=== PATIENT | female | born 1955 | race Caucasian/White ===

== ENCOUNTER 2017-06-28 14:59 | Outpatient (CLI) | payer BC ==
--- NOTE | 2017-06-28 15:56 | XRAY Report ---
TWO-VIEW LEFT HAND: 06/28/2017 CLINICAL INDICATION: Thumb pain, swelling. FINDINGS: Frontal and lateral views of the left hand demonstrate mild osteoarthritis of the interpha langeal joints. There is no evidence of acute fracture or dislocation. No radiopaque foreign body i s appreciated in the soft tissues. IMPRESSION: MILD OSTEOARTHRITIS. JOB #: [id number] EXT JOB #:[id number]
== END 2017-06-28 15:00 | disposition home or self-care (01) ==
LOC: DI 14:59
PROVIDERS: ATTEND Physician Assistant Medical
DX: M19.042 Primary osteoarthritis, left hand (principal)

== ENCOUNTER 2017-07-22 15:40 | Outpatient (CLI) | payer BC ==
--- NOTE | 2017-07-23 09:55 | Ultrasound Report ---
PELVIC ULTRASOUND: 07/22/2017 CLINICAL INDICATION: Androgen excess. TECHNIQUE: Transabdominal pelvic ultrasound performed for global evaluation. Transvaginal pelvic ult rasound performed for detailed evaluation. Real-time scanning performed and static images obtained. FINDINGS: The uterus is anteverted, measuring 9.4 x 5.0 x 4.8 cm. The endometrial echo complex radha ures 4 mm. An anterior subserosal leiomyoma is noted, measuring 2.0 x 1.5 x 1.2 cm. There is a tubu lar fluid collection in the left adnexa, measuring 5.3 x 3.9 x 1.7 cm, likely representing a hydrosal pinx. The left ovary is not confidently identified. No free fluid is present. IMPRESSION: LIKELY LEFT HYDROSALPINX. SMALL SUBSEROSAL LEIOMYOMA. JOB #: [id number] EXT JOB #:[id number]
== END 2017-07-22 15:41 | disposition home or self-care (01) ==
LOC: DI 15:40
PROVIDERS: ATTEND Obstetrics & Gynecology
DX: D25.2 Subserosal leiomyoma of uterus (principal)
CPT/HCPCS: 76830; 76856

== ENCOUNTER 2017-07-22 15:41 | Outpatient (CLI) | payer BC ==
--- NOTE | 2017-07-23 12:27 | Mammography Report ---
DIGITAL SCREENING MAMMOGRAM: 07/22/2017 CLINICAL INDICATION: A 61-year-old patient with family history of breast cancer, history of reductio n for screening. COMPARISON: 06/2016, 06/2015, 06/2014, 06/2013, 06/2012, 06/2011, 06/2010. TECHNIQUE: Routine CC and MLO projections were obtained of the breasts. FINDINGS: The breasts demonstrate fatty replacement bilaterally. Coarse and punctate, typically stephanie ign calcifications are present. Post-reduction changes are stable. No suspicious masses, clustered microcalcifications, or regions of architectural distortion are identified. IMPRESSION: BENIGN FINDINGS. RECOMMENDATION: Routine annual screening unless otherwise clinically indicated. BI-RADS category 2, benign findings. STANDARD QUALIFYING STATEMENTS 1. This examination was reviewed with the aid of Computer-Aided Detection (CAD). 2. A negative or benign imaging report should not delay biopsy if clinically suspicious findings are present. Consider surgical consultation if warranted. More than 5% of cancers are not identified by i maging. 3. Dense breasts may obscure an underlying neoplasm. JOB #: [id number] EXT JOB #:[id number]
== END 2017-07-22 15:42 | disposition home or self-care (01) ==
LOC: DI 15:41
PROVIDERS: ATTEND Obstetrics & Gynecology
DX: Z12.39 Encounter for other screening for malignant neoplasm of breast (principal); Z80.3 Family history of malignant neoplasm of breast
CPT/HCPCS: 77067

== ENCOUNTER 2017-12-10 11:18 | Outpatient (CLI) | payer BC ==
--- NOTE | 2017-12-10 12:57 | Ultrasound Report ---
PELVIC ULTRASOUND: 12/10/2017 CLINICAL INDICATION: Androgen excess. COMPARISON: 07/22/2017. TECHNIQUE: Transabdominal pelvic ultrasound performed for global evaluation. Transvaginal pelvic ultrasound performed for detailed evaluation. Real-time scanning performed and static images obtained. FINDINGS: The uterus is anteverted, measuring 8.8 x 5.4 x 4.2 cm. The endometrium measures 5 mm. Anterior subserosal leiomyoma measures 2.2 x 2.0 x 1.4 cm. The right ovary is unremarkable, measuring 2.5 x 1.8 x 1.8 cm. A tubular serpiginous cystic structure is again seen in the left adnexa, measuring 5.0 x 3.4 x 2.5 cm, likely representing a hydrosalpinx. No free fluid is present. IMPRESSION: STABLE ANTERIOR SUBSEROSAL LEIOMYOMA. LIKELY LEFT HYDROSALPINX. TD: 12/10/2017 12:56
== END 2017-12-10 11:19 | disposition home or self-care (01) ==
LOC: DI 11:18
PROVIDERS: ATTEND Obstetrics & Gynecology
DX: D25.2 Subserosal leiomyoma of uterus (principal)
CPT/HCPCS: 76830; 76856

== ENCOUNTER 2018-07-09 14:16 | Outpatient (CLI) | payer BC ==
--- NOTE | 2018-07-10 12:20 | Ultrasound Report ---
Reason: ADROGEN EXCESS Procedure Date: 07/09/2018 Accession Number: [id number] / [id number] Procedure: US - Pelvic w/Transvaginal CPT Code: FULL RESULT: EXAM: PELVIC ULTRASOUND EXAM DATE: 07/09/2018 03:26 PM. CLINICAL HISTORY: Androgen excess. COMPARISON: Pelvic with transvaginal 07/22/2017 4:03 PM. TECHNIQUE: Realtime transabdominal pelvic scan performed to identify the uterus and adnexa and as an overview of other pelvic structures, followed by transvaginal scan to provide greater detail of the uterus and adnexa, with static image documentation. FINDINGS: Uterus: 9.3 x 5.3 x 4.3 cm, volume 110.2 cc. Anteverted position. Normal overall size and echotexture. Masses: 2 x 1.8 x 1.2 cm anterior subserosal fibroid. Endometrium: 4.1 mm. Normal. Cervix: Unremarkable. Right Ovary: 3.5 x 2.2 x 1.6 cm, volume 6.4 cc. Normal echotexture and blood flow. Left Ovary: Tubular cystic structure in the left adnexal region measuring 5.6 x 5 x 2.9 cm for a volume of 42.2 cc. No definite left ovary is noted. Free Fluid: None. Other: None. IMPRESSION: 1. Normal right ovary and adnexa. 2. A 2 cm anterior uterine subserosal fibroid. 3. No endometrial mass or polyp. 4. Probable left hydrosalpinx. RADIA
== END 2018-07-09 14:17 | disposition home or self-care (01) ==
LOC: DI 14:16
PROVIDERS: ATTEND Obstetrics & Gynecology
DX: D25.2 Subserosal leiomyoma of uterus (principal); E28.1 Androgen excess
CPT/HCPCS: 76830; 76856

== ENCOUNTER 2018-07-11 14:56 | Outpatient (CLI) | payer BC ==
--- NOTE | 2018-07-12 15:10 | DEXA Report ---
Reason: POSTMENOPAUSAL, SCREENING MAMMO Procedure Date: 07/11/2018 Accession Number: [id number] / [id number] Procedure: DEX - Dexa Spine and/or Hip CPT Code: FULL RESULT: EXAM: Dexa Spine and/or Hip DATE: 07/11/2018 3:30 PM CLINICAL HISTORY: POSTMENOPAUSAL, SCREENING MAMMO TECHNIQUE: Dual energy x-ray absorptiometry (DXA) was performed on a [employer]. Regions measured are the AP Spine, femoral neck, and if needed forearm. COMPARISON: None. In accordance with the International Society for Clinical Densitometry (ISCD) guidelines, data from previous exams may be reanalyzed using current recommendations and techniques. This is done to allow a more accurate basis for comparison with the current study. FINDINGS: The data for the lumbar spine is as follows: BMD (g/cm/cm) T-SCORE Z-SCORE REGION L1 1.091 -0.3 0.7 L2 1.211 0.1 1.1 L3 1.376 1.5 2.5 L4 1.389 1.6 2.6 TOTAL 1.278 0.8 1.8 NOTE: All evaluable vertebrae are used for classification The data for the hip is as follows: BMD (g/cm/cm) T-SCORE Z-SCORE REGION Neck 1.110 0.5 1.6 TOTAL 1.122 0.9 1.7 IMPRESSION: THE WHO CLASSIFICATION BASED ON THE INTERNATIONAL REFERENCE STANDARD IS NORMAL. THE FRACTURE RISK IS NOT INCREASED. RECOMMENDATION: Patients with diagnosis of osteoporosis or osteopenia should have regular bone mineral density assessment. For those eligible for Medicare, routine testing is allowed once every 2 years. Testing frequency can be increased for patients who have rapidly progressing disease or for those who are receiving medical therapy to restore bone mass. COMMENT: World Health Organization (WHO) definitions for osteoporosis and osteopenia: NORMAL BMD: T-score at -1.0 or higher, fracture risk is low OSTEOPENIA BMD: T-score between -1.0 and -2.5, fracture risk is increased. OSTEOPOROSIS BMD: T-score at -2.5 or lower, fracture risk is high. National Osteoporosis Foundation recommends: 1. Obtain adequate dietary calcium (at least 1200 mg per day) and vitamin D (400-800 international units per day). 2. Participate, as appropriate, in regular weightbearing and muscle-strengthening exercise. 3. Avoid tobacco use and reduce alcohol and caffeine intake. 4. For more detailed information see the website at www.NOF.org.
== END 2018-07-11 14:57 | disposition home or self-care (01) ==
LOC: DI 14:56
PROVIDERS: ATTEND Physician Assistant Medical
DX: Z78.0 Asymptomatic menopausal state (principal)
CPT/HCPCS: 77080

== ENCOUNTER 2018-07-26 15:18 | Outpatient (CLI) | payer BC ==
--- NOTE | 2018-07-27 10:24 | Mammography Report ---
Reason: SCREENING MAMMO Procedure Date: 07/26/2018 Accession Number: [id number] / [id number] Procedure: [facility] - Screening Mammo w/Connor CPT Code: FULL RESULT: EXAM: Screening Mammo w/Connor DATE: 07/26/2018 3:53 PM CLINICAL HISTORY: 62 year-old nulliparous female with history of breast reduction surgery and family history of breast cancer in the mother at age 40 and likely age 72. TECHNIQUE: Bilateral CC and MLO views were obtained. COMPARISON: 07/22/2017, 07/13/2016, 07/08/2015, 07/13/2014. FINDINGS: The breasts demonstrate diffuse fatty replacement bilaterally. Postsurgical changes in both breasts are stable. No suspicious masses, clustered microcalcifications, or regions of architectural distortion are identified. IMPRESSION: Benign findings RECOMMENDATION: Routine annual screening unless otherwise clinically indicated. BIRADS CATEGORY 2: Benign findings STANDARD QUALIFYING STATEMENTS: 1. This examination was not reviewed with the aid of Computer-Aided Detection (CAD). 2. A negative or benign imaging report should not delay biopsy if clinically suspicious findings are present. Consider surgical consultation if warrented. More than 5% of cancers are not identified by imaging. 3. Dense breasts may obscure an underlying neoplasm. 4. This examination was reviewed with the aid of 3D breast imaging (tomosynthesis).
== END 2018-07-26 15:19 | disposition home or self-care (01) ==
LOC: DI 15:18
PROVIDERS: ATTEND Physician Assistant Medical
DX: Z12.31 Encounter for screening mammogram for malignant neoplasm of breast (principal); Z80.3 Family history of malignant neoplasm of breast
CPT/HCPCS: 77063; 77067

== ENCOUNTER 2018-09-19 17:18 | Outpatient (CLI) | payer BC ==
--- NOTE | 2018-09-20 10:19 | XRAY Report ---
Reason: SPRAIN OF UNSPECIFIED LIGAMENT OF LT ANKLE Procedure Date: 09/19/2018 Accession Number: [id number] / [id number] Procedure: XR - Ankle 3 View LT CPT Code: FULL RESULT: EXAM: LEFT ANKLE RADIOGRAPHY EXAM DATE: 09/19/2018 05:31 PM. CLINICAL HISTORY: Sprain of unspecified ligament of left ankle. COMPARISON: None. TECHNIQUE: 3 views. FINDINGS: Bones: Small ossifications adjacent to the lateral margin of the calcaneus are highly suspicious for avulsion fracture (extensor digitorum brevis). No other fractures or bone lesions. Joints: Normal. No effusion. No subluxations. The ankle mortise is normally aligned. Soft Tissues: Lateral ankle soft tissue swelling. IMPRESSION: 1. Findings highly suspicious for lateral calcaneal avulsion fracture (extensor digitorum brevis). 2. Lateral ankle soft tissue swelling. RADIA
== END 2018-09-19 17:19 | disposition home or self-care (01) ==
LOC: DI 17:18
PROVIDERS: ATTEND Nurse Practitioner Primary Care
DX: S93.402A Sprain of unspecified ligament of left ankle, initial encounter (principal); M25.472 Effusion, left ankle

== ENCOUNTER 2019-08-16 11:56 | Outpatient (CLI) | payer BC ==
--- NOTE | 2019-08-16 15:02 | Ultrasound Report ---
Reason: RECURRENT ABD HERNIA Procedure Date: 08/16/2019 Accession Number: [id number] / [id number] Procedure: US - Abdomen Limited CPT Code: FULL RESULT: EXAM: ABDOMEN ULTRASOUND LIMITED, RUQ EXAM DATE: 08/16/2019 12:55 PM. CLINICAL HISTORY: RECURRENT ABD HERNIA. COMPARISON: None. TECHNIQUE: Real-time scanning was performed with static images obtained. FINDINGS: Limited abdominal ultrasound in the region of the mid abdominal scar kidney There is a small 4 mm hypoechoic focus in the deep fascial layer to the right of the midline scar. Differentials include a tiny 4 mm rent in the fascia, however no herniation. No focal fluid collection. IMPRESSION: A small 4 mm hypoechoic focus in the deep fascial layer to the right of the midline scar. Differentials include a tiny 4 mm rent in the fascia, however no herniation. No focal fluid collection. RADIA
== END 2019-08-16 11:57 | disposition home or self-care (01) ==
LOC: DI 11:56
PROVIDERS: ATTEND Obstetrics & Gynecology
DX: K43.2 Incisional hernia without obstruction or gangrene (principal)
CPT/HCPCS: 76705

== ENCOUNTER 2019-09-06 16:38 | Outpatient (CLI) | payer BC ==
--- NOTE | 2019-09-07 08:35 | Mammography Report ---
Reason: ROUTINE MAMMO Procedure Date: 09/06/2019 Accession Number: [id number] / [id number] Procedure: [facility] - Screening Mammo w/Connor CPT Code: Final Report FULL RESULT: EXAM: Screening Mammo w/Connor DATE: 09/06/2019 5:00 PM CLINICAL HISTORY: Screening encounter. History of nulliparity. Family history of breast cancer in the mother at the age of 40. History of bilateral breast reduction in 2007. TECHNIQUE: (B) - Bilateral CC and MLO views were obtained. COMPARISON: 07/26/2018 through 06/18/2010. PARENCHYMAL PATTERN: (F) - The breast(s) demonstrate(s) diffuse fatty replacement. FINDINGS: Bilateral postsurgical changes including typically benign coarse calcifications are again seen. There are no suspicious masses, calcifications, or areas of distortion. IMPRESSION: Benign findings. BI-RADS category 2. RECOMMENDATION: (ANNUAL) - Recommend routine annual screening mammography. BI-RADS CATEGORY: (2) - Benign Findings. STANDARD QUALIFYING STATEMENTS: 1. This examination was not reviewed with the aid of Computer-Aided Detection (CAD). 2. A negative or benign imaging report should not preclude biopsy if clinically suspicious findings are present. 3. Dense breasts may obscure an underlying neoplasm. 4. This examination was reviewed with the aid of 3D breast imaging (tomosynthesis).
== END 2019-09-06 16:39 | disposition home or self-care (01) ==
LOC: DI 16:38
PROVIDERS: ATTEND Obstetrics & Gynecology
DX: Z12.31 Encounter for screening mammogram for malignant neoplasm of breast (principal); Z80.3 Family history of malignant neoplasm of breast
CPT/HCPCS: 77063; 77067

== ENCOUNTER 2020-09-25 15:42 | Outpatient (CLI) | payer MEDICARE, OTHER ==
--- NOTE | 2020-09-26 09:06 | Mammography Report ---
BILATERAL DIGITAL SCREENING MAMMOGRAM 3D/2D: 09/25/2020 CLINICAL: Family history of breast cancer. Routine screening. Comparison is made to exams dated: 09/06/2019 mammogram, 07/26/2018 mammogram, 07/22/2017 mammogram, a nd 07/13/2016 mammogram - [facility]. The tissue of both breasts is predominantly f atty. No significant masses, calcifications, or other findings are seen in either breast. There has been no significant interval change. IMPRESSION: NEGATIVE There is no mammographic evidence of malignancy. A 1 year screening mammogram is recommended. This exam was interpreted at Station ID: [id number]. NOTE: For mammograms, a report in lay terms will be sent to the patient. Approximately 15% of breast malignancies will not be visualized mammographically. In the management of a palpable breast mass, a negative mammogram must not discourage biopsy of a clinically suspicious lesion. Electronically Signed By: Radha arias/penrad:09/25/2020 17:43:17 ACR BI-RADS Category 1: Negative 3341F PARENCHYMAL PATTERN: (F) - The breast(s) demonstrate(s) diffuse fatty replacement. BI-RADS CATEGORY: (1) - 1 RECOMMENDATION: (ANNUAL) - Recommend routine annual screening mammography. [id number] 1 year screening LATERALITY: (B)
== END 2020-09-25 15:43 | disposition home or self-care (01) ==
LOC: DI.N 15:42
PROVIDERS: ATTEND Obstetrics & Gynecology
DX: Z12.31 Encounter for screening mammogram for malignant neoplasm of breast (principal); Z80.3 Family history of malignant neoplasm of breast

== ENCOUNTER 2021-08-29 11:20 | Emergency (ER) | payer MEDICARE, OTHER ==
[2021-08-29 11:32] VITALS: BP 133/70
--- NOTE | 2021-08-29 11:38 | ED Physician Documentation ---
History of Present Illness - Stated complaint Stated Complaint: CHEST PAIN - Additonal information Additional information: 66-year-old female presents the emergency department for evaluation of a deep sharp epigastric pain that radiates to her jaw. This has occurred several night s in a row and only occurs at night. It wakes her up from sleep. She does try to press deeply into her stomach and epigastrium to relieve the pain. She denies any nausea or vomiting. Denies any history of hypertension or diabetes. No previous history of coronary artery disease previous [place] or stroke. She denies that she has a symptoms during the daytime and it is not exertional. PMH: anxiety/depression and GERD Past surgical history most significant for colonoscopy with finding of colon cancer status post resection and anastamosis and multiple abdominal hernia repairs. soc: denies tobacco, etoh or cannabis Review of Systems Constitutional: denies: Fever, Chills Eyes: reports: Reviewed and negative Ears: reports: Reviewed and negative Nose: reports: Rhinorrhea / runny nose Throat: reports: Reviewed and negative Cardiac: reports: Chest pain / pressure. denies: Palpitations, Pedal edema, Calf pain Respiratory: denies: Dyspnea, Cough GI: reports: Abdominal Pain. denies: Nausea, Vomiting : reports: Reviewed and negative Skin: reports: Reviewed and negative PD PAST MEDICAL HISTORY - Past Medical History Past Medical History: Yes Cardiovascular: None Respiratory: Asthma Neuro: None Endocrine/Autoimmune: Other GI: GERD, Colon polyps, Other COOKING TEACHER: None : Other HEENT: None Psych: Depression, Anxiety, Claustrophobia Musculoskeletal: None Derm: None Other Past Medical History: polycystic overies - Past Surgical History Past Surgical History: Yes General: Bowel surgery, Colonoscopy, Other /COOKING TEACHER: Breast reduction HEENT: Rhinoplasty - Present Medications Home Medications: Ambulatory Orders Medication Instructions Recorded Confirmed Alprazolam [Xanax] 0.25 mg PO PRN PRN 03/22/14 08/29/21 Bioidentity Hormone TOP DAILY 03/22/14 03/23/14 Metformin HCl [Metformin HCl ER] 500 mg PO DAILY 03/22/14 08/29/21 Spironolactone 25 mg PO BID 03/22/14 08/29/21 Venlafaxine [Effexor] 37.5 mg ORAL DAILY 03/22/14 08/29/21 Sucralfate [Carafate] 1 gm PO ACHS #60 tablet 08/29/21 - Allergies Allergies/Adverse Reactions: Allergies Allergy/AdvReac Type Severity Reaction Status Date / Time morphine Allergy Emesis Verified 08/29/21 11:38 sulfur dioxide Allergy Hives Verified 08/29/21 11:38 - Social History Does the pt smoke?: No Smoking Status: Never smoker Does the pt drink ETOH?: No Does the pt have substance abuse?: No - Immunizations Immunizations are current?: No Immunizations: TDAP current <10years, Other immun current - POLST Patient has POLST: No PD ED PE NORMAL - General General: Alert and oriented X 3, No acute distress - HEENT HEENT: PERRL - Neck Neck: Supple, no meningeal sign - Cardiac Cardiac: RRR, No murmur - Respiratory Respiratory: Clear bilaterally - Abdomen Abdomen: Normal bowel sounds, Soft, Non tender, Non distended - Back Back: No CVA TTP, No spinal TTP - Derm Derm: Normal color, Warm and dry, No rash - Extremities Extremities: No deformity - Neuro Neuro: Alert and oriented X 3 Eye Opening: Spontaneous Motor: Obeys Commands Verbal: Oriented GCS Score: 15 Results - Vitals Vitals: Vital Signs - 24 hr 08/29/21 08/29/21 11:24 11:31 Temperature 36.8 C 37.0 C Heart Rate 78 91 Respiratory 18 15 Rate Blood Pressure 146/86 H 133/70 H O2 Saturation 98 99 Oxygen O2 Source Room air - EKG (time done) 1142 Rate: Rate (enter#) (82) Rhythm: NSR [place]: Other (LAFB) Intervals: Normal FL, Prolonged QT QRS: LVH Ischemia: Normal ST segments Compare to prior EKG: Old EKG unavailable Computer interpretation: Agree with computer - Labs Labs: Laboratory Tests 08/29/21 08/29/21 08/29/21 11:35 11:35 11:35 WBC 6.7 RBC 4.43 Hgb 14.3 Hct 41.7 MCV 94.1 MCH 32.3 H MCHC 34.3 RDW 11.9 L Plt Count 307 MPV 8.6 Neut # (Auto) 3.3 Lymph # (Auto) 2.6 [place] # (Auto) 0.6 Eos # (Auto) 0.1 Baso # (Auto) 0.0 Absolute Nucleated RBC 0.00 Nucleated RBC % 0.0 Sodium 136 Potassium 4.4 Chloride 101 Carbon Dioxide 25 Anion Gap 10.0 BUN 10 Creatinine 0.6 Estimated GFR (MDRD) 100 Glucose 121 H Calcium 9.8 Total Bilirubin 1.2 H AST 22 ALT 18 Alkaline Phosphatase 78 Troponin I High Sens < 2.3 L B-Natriuretic Peptide Total Protein 7.5 Albumin 4.3 Globulin 3.2 Albumin/Globulin Ratio 1.3 Lipase 43 08/29/21 11:35 WBC RBC Hgb Hct MCV MCH MCHC RDW Plt Count MPV Neut # (Auto) Lymph # (Auto) [place] # (Auto) Eos # (Auto) Baso # (Auto) Absolute Nucleated RBC Nucleated RBC % Sodium Potassium Chloride Carbon Dioxide Anion Gap BUN Creatinine Estimated GFR (MDRD) Glucose Calcium Total Bilirubin AST ALT Alkaline Phosphatase Troponin I High Sens B-Natriuretic Peptide 12 Total Protein Albumin Globulin Albumin/Globulin Ratio Lipase - Rads (name of study) CXR Radiology: Final report received (no acute cardiopulmonary findings) PD MEDICAL DECISION MAKING - ED course Complexity details: reviewed results, re-evaluated patient, considered differential, d/w patient ED course: This is a well-appearing 66-year-old female that presents the emergency department for evaluation of epigastric pain that has awoken her from sleep the last few nights. However it radiates to her jaw. This is only occurring at night and is not present during the day with activity or after eating. She does report a history of GERD for which she takes tomasa extract. Today screening EKG is nonischemic. High-sensitivity troponin is negative. Chest x-ray without acute focal pathology. Discussed with the patient that given age she would benefit from an outpatient stress test and echocardiogram. However given the predominance of symptoms at night with an associated history of GERD I am somewhat suspicious for a gastritis or peptic ulcer disease. Patient will be prescribed some Carafate to be used at nighttime. Encourage close follow-up with PCP. Otherwise emergent return precautions discussed. Departure - Departure Disposition: 01 Home, Self Care Clinical Impression: Epigastric abdominal pain Condition: Stable Record reviewed to determine appropriate education?: Yes Follow-Up: Yung Real MD [Primary Care Provider] - Prescriptions: Sucralfate [Carafate] 1 gm PO ACHS #60 tablet Comments: Lakia you are seen in the emergency department today for upper abdominal pain that has been occurring the last few nights and wakes you from sleep. It does not seem to be present at any other time. As we discussed at the bedside your screening EKG does not show any worrisome findings. Your chest x-ray and screening labs are all also essentially unremarkable. The cause of this pain is not clear at this time however it may be gastritis or early peptic ulcer disease. I recommend that you begin taking the Carafate at night before bedtime. You may benefit from referral for endoscopy to evaluate the lining of your esophagus and stomach. However given your age it would also be important for your primary doctor to make a referral for an outpatient stress test or echocardiogram. At any point you feel your symptoms are worsening, you have this pain develop during the day or with activity, you feel lightheaded, short of breath or have any fainting episodes and please return immediately to the ER for second evaluation. Your prescription has been electronically sent to the [facility] in [place]
[2021-08-29 11:41] LABS: BASOPHILS % (AUTO) 0.3 %; EOSINOPHILS # (AUTO) 0.1 10^3/uL (0.0-0.7); EOSINOPHILS % (AUTO) 1.5 %; HCT - HEMATOCRIT 41.7 % (37.0-47.0); HGB - HEMOGLOBIN 14.3 g/dL (12.0-16.0); LYMPHOCYTES # (AUTO) 2.6 10^3/uL (1.5-3.5); LYMPHOCYTES % (AUTO) 38.8 %; MEAN CORPUSCULAR HEMOGLOBIN 32.3 pg (27.0-31.0); MEAN CORPUSCULAR HGB CONC 34.3 g/dL (32.0-36.0); MEAN CORPUSCULAR VOLUME 94.1 fL (81.0-99.0); MEAN PLATELET VOLUME 8.6 fL (7.9-10.8); MONOCYTES # (AUTO) 0.6 10^3/uL (0.0-1.0); MONOCYTES % (AUTO) 9.5 %; NEUTROPHILS # (AUTO) 3.3 10^3/uL (1.5-6.6); NEUTROPHILS % (AUTO) 49.8 %; PLT - PLATELET COUNT 307 10^3/uL (130-450); RED BLOOD COUNT 4.43 10^6/uL (4.20-5.40); RED CELL DISTRIBUTION WIDTH 11.9 % (12.0-15.0); WHITE BLOOD COUNT 6.7 x10^3/uL (4.8-10.8)
[2021-08-29 11:57] LABS: ALBUMIN 4.3 g/dL (3.2-5.5); ALBUMIN/GLOBULIN RATIO 1.3 (1.0-2.2); BILIRUBIN,TOTAL 1.2 mg/dL (0.2-1.0); CALCIUM 9.8 mg/dL (8.5-10.3); CREATININE 0.6 mg/dL (0.4-1.0); POTASSIUM 4.4 mmol/L (3.5-5.0); TOTAL PROTEIN 7.5 g/dL (6.7-8.2)
--- NOTE | 2021-08-29 12:25 | XRAY Report ---
PROCEDURE: Chest 1 View X-Ray INDICATIONS: Chest Pain TECHNIQUE: One view of the chest was acquired. COMPARISON: December 03, 2015 FINDINGS: Surgical changes and devices: None. Lungs and pleura: No pleural effusions or pneumothorax. 2 cm partially imaged density projecting ove r the right lung base between the right 10th and 11th ribs probably reflects nipple shadow, and remai ns unchanged from the prior exam. Mediastinum: Mediastinal contours appear normal. Heart size is normal. Bones and chest wall: No suspicious bony lesions. Overlying soft tissues appear unremarkable. IMPRESSION: No acute cardiopulmonary findings Partially imaged is 2 cm density projected over the right lung base is stable from the prior and prob ably reflects nipple shadow. Follow-up with nipple markers could be considered for confirmation. Reviewed by: Rajiv Perez MD on 08/29/2021 11:24 AM [facility] Approved by: Rajiv Perez MD on 08/29/2021 11:24 AM [facility] Station ID: [id number]
== END 2021-08-29 12:44 | disposition home or self-care (01) ==
LOC: ED 11:20
DX: R10.13 Epigastric pain (principal); K21.9 Gastro-esophageal reflux disease without esophagitis; F32.9 Major depressive disorder, single episode, unspecified; F41.9 Anxiety disorder, unspecified; F40.240 Claustrophobia; Z79.84 Long term (current) use of oral hypoglycemic drugs; Z79.899 Other long term (current) drug therapy; Z98.0 Intestinal bypass and anastomosis status; Z85.038 Personal history of other malignant neoplasm of large intestine; Z90.49 Acquired absence of other specified parts of digestive tract
CPT/HCPCS: 36415; 80053; 83690; 83880; 84484; 85025; 93005; 99283; 99284

== ENCOUNTER 2021-09-29 13:53 | Outpatient (CLI) | payer MEDICARE, OTHER ==
--- NOTE | 2021-09-30 14:02 | Mammography Report ---
BILATERAL DIGITAL SCREENING MAMMOGRAM 3D/2D: 09/29/2021 CLINICAL: Family history of breast cancer. Routine screening. Comparison is made to exams dated: 09/25/2020 mammogram, 09/06/2019 mammogram, 07/26/2018 mammogram, 1 mammogram, 07/13/2016 mammogram, and 07/13/2014 ultrasound - [facility]. Th e tissue of both breasts is predominantly fatty. There are benign calcifications in the right breast. No significant masses, calcifications, or other findings are seen in either breast. There has been no significant interval change. IMPRESSION: BENIGN There is no mammographic evidence of malignancy. A 1 year screening mammogram is recommended. This exam was interpreted at Station ID: [id number]. NOTE: For mammograms, a report in lay terms will be sent to the patient. Approximately 15% of breast malignancies will not be visualized mammographically. In the management of a palpable breast mass, a negative mammogram must not discourage biopsy of a clinically suspicious lesion. Electronically Signed By: Alex Daniel acr/penrad:09/29/2021 14:32:15 ACR BI-RADS Category 2: Benign Finding(s) 3342F PARENCHYMAL PATTERN: (F) - The breast(s) demonstrate(s) diffuse fatty replacement. BI-RADS CATEGORY: (2) - 2 RECOMMENDATION: (ANNUAL) - Recommend routine annual screening mammography. [id number] 1 year screening LATERALITY: (B)
== END 2021-09-29 13:54 | disposition home or self-care (01) ==
LOC: DI.N 13:53
DX: Z12.31 Encounter for screening mammogram for malignant neoplasm of breast (principal); Z80.3 Family history of malignant neoplasm of breast

== ENCOUNTER 2021-10-02 08:03 | Outpatient (CLI) | payer MEDICARE, OTHER ==
--- NOTE | 2021-10-02 08:17 | CARDIAC PROCEDURE NOTE ---
Stress Test Report Service Date: 10/02/21 Service Time: 08:00 Ordering Provider: Mendoza Tillman MD Indication for Test: Assess for ischemia in patient with episodic non-exertional epigastric discomfort. Significant Medical History: Lakia is referred for a stress echocardiogram today, after evaluation a couple of weeks ago at our Emergency Department, having awakened from sleep with sharp epigastric discomfort radiating a bit to the right side. She has been treated for insulin resistance/polycystic ovarian syndrome for over 10 years with medications that include spironolactone and Metformin. There has been concern that Metformin may have triggered some gastric reflux. When seen in the Emergency Department her troponin was negative but EKG was abnormal showing left axis deviation, probable left anterior fascicular block. She has been trialed on omeprazole, though notes that this has not been well tolerated, with soreness in her throat that has necessitated discontinuation of this medication 3 days ago. She also had an additional episode of epigastric discomfort that awakened her from sleep at that time. She has not used any medication for these episodes and has had gradual resolution of symptoms. 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 Cardiac Risk Factors: History of Insulin resistance/polycystic ovarian syndrome, hyperlipidemia and family history of coronary artery disease in her father, who had angina and MA in his late 50s. She smoked for a very short time in her late teen years but then discontinued. She has not been treated for hypertension. Type of Stress Test: ETT with Echocardiography Procedure: -Exercise Treadmill Test- After signing informed consent, the patient underwent resting echo imaging and then performed treadmill exercise using a Myles protocol. The patient exercised for 9 minutes 4 seconds and achieved a peak heart rate of 167 (108 percent predicted maximum heart rate for age), and an estimated workload of 10.2 METS. The test was terminated due to fatigue/shortness of breath, after achieving target heart rate. Resting heart rate: 81 Peak heart rate: 167 Normal response to exercise. Resting BP: 126/84 Peak BP: 177/84 Normal BP response to exercise. Rhythm during exercise: Sinus rhythm throughout. Symptoms: NO report of any chest pressure or discomfort. EKG at rest showed normal sinus rhythm with left anterior fascicular block. EKG at peak stress showed no ischemia by EKG criteria. In Recovery heart rate and blood pressure rapidly/normally returned to baseline levels. Echo imaging performed at rest and with stress will be reported separately. IScott MD, was present throughout this treadmill stress study and supervised it in its entirety. Summary: 1) Exercise tolerance well above average for age, as evidenced by JAIME of -45%. 2) Abnormal resting EKG, with left anterior fascicular block (LAFB). 3) Adequate level of exercise was achieved on this treadmill stress test. 4) Normal BP response to exercise. 5) No ischemic changes by EKG criteria were seen at peak stress. 6) Echo image interpretation reveals normal left ventricular size and systolic function, with appropriate hyperdynamic augmentation of all segments with exercise, indicating no evidence of prior infarct or inducible ischemia. See separate report for more details. CONCLUSIONS: 1) Low risk stress echocardiogram, with no symptom, EKG or echo evidence of inducible ischemia. 2) Resting EKG abnormality likely entirely explained by LAFB, without evidence of left ventricular hypertrophy (latter also not seen with echo imaging). 3) Patient advised to try TUMS acutely in case of recurrent nonexertional epigastric discomfort, and to discuss alternative anti-acid treatment options with Dr Real at f/u appointment in October.
== END 2021-10-02 08:04 | disposition home or self-care (01) ==
LOC: DI 08:03
PROVIDERS: ATTEND Family Medicine
DX: R07.89 Other chest pain (principal); I44.4 Left anterior fascicular block
CPT/HCPCS: 93016; 93018; 93350

== ENCOUNTER 2021-11-11 12:54 | Outpatient (CLI) | payer MEDICARE, OTHER ==
--- NOTE | 2021-11-11 19:11 | DEXA Report ---
PROCEDURE: Dexa Spine and/or Hip INDICATIONS: ASYMPTOMATIC POSTMENOPAUSAL STATUS TECHNIQUE: Dual energy x-ray absorptiometry (DXA) was performed on a MonoSphere System. Regions measur ed are the AP Spine, femoral neck, and if needed forearm. COMPARISON: 07/11/2018. FINDINGS: Lumbar Spine: Bone Mineral Density 1.273 g/cm/cm,T score 0.8, statistically unchanged since the previous study Left Hip: Bone Mineral Density 1.071 g/cm/cm,T score 0.5, statistically decreased from the most recent prior s tudy, by 4.5% Left Femoral Neck: Bone Mineral Density 1.069 g/cm/cm, T score 0.2. (T score greater or equal to -1.0: NORMAL) (T score from -1.1 to -2.4: OSTEOPENIA) (T score less than or equal to -2.5 to: OSTEOPOROSIS) Impression: Normal bone mineral density. Statistically significant interval decrease in bone mineral density of the left hip since the previous study. Patients with diagnosis of osteoporosis or osteopenia should have regular bone mineral density assess ment. For those eligible for Medicare, routine testing is allowed once every 2 years. Testing frequ ency can be increased for patients who have rapidly progressing disease or for those who are receivin g medical therapy to restore bone mass. Reviewed by: Adonay Tracy MD on 11/11/2021 7:10 PM PST Approved by: Adonay Tracy MD on 11/11/2021 7:10 PM PST Station ID: [id number]
== END 2021-11-11 12:55 | disposition home or self-care (01) ==
LOC: DI 12:54
PROVIDERS: ATTEND Family Medicine
DX: Z78.0 Asymptomatic menopausal state (principal)

== ENCOUNTER 2021-11-17 07:34 | Day surgery (SDC) | payer MEDICARE, OTHER ==
[2021-11-17] MEDS ORDERED: LACTATED RINGERS 1,000 ML IV ONE (07:37)
--- NOTE | 2021-11-17 09:03 | ANESTHESIA ---
Pre-Anesthesia VS, & Labs - Diagnosis GERD, Esophageal spasm, Screening exam - Procedure EGD and colonoscopy Vital Signs: Temp Pulse Resp BP Pulse Ox 37.2 C 95 18 121/85 H 95 11/17/21 07:40 11/17/21 07:40 11/17/21 07:40 11/17/21 07:40 11/17/21 07:40 Height: 5 ft 4 in Weight (kg): 72.5 kg Body Mass Index: 27.4 BMI Classification: Overweight - NPO >8 hours - Is Patient ?: No Home Medications and Allergies Home Medications: Ambulatory Orders [employer]ice Thyriod 1 tablet PO DAILY 11/14/21 Alprazolam [Xanax] 1 tab PO PRN PRN 11/17/21 Bioidentity Hormone 1 each TOP DAILY 03/22/14 Metformin HCl [Metformin HCl ER] 500 mg PO BID 03/22/14 Spironolactone 50 mg PO BID 03/22/14 Venlafaxine [Effexor] 37.5 mg ORAL DAILY 03/22/14 [employer] Apprentice Thyriod 1 tablet PO DAILY 11/14/21 Alprazolam [Xanax] 1 tab PO PRN PRN 11/17/21 Allergies/Adverse Reactions: Allergies Allergy/AdvReac Type Severity Reaction Status Date / Time morphine Allergy Emesis Verified 08/29/21 11:38 sulfur dioxide Allergy Hives Verified 08/29/21 11:38 Anes History & Medical History - Anesthetic History Anesthesia Complications: reports: No previous complications - Medical History Cardiovascular: reports: None Pulmonary: reports: None, Other (Covid 10/28/20) Gastrointestinal: reports: GERD, Colon polyps, Other Urinary: reports: None Neuro: reports: None Musculoskeletal: reports: None Endocrine/Autoimmune: reports: Other (PCOS) Blood Disorders: reports: None Skin: reports: None Smoking Status: Never smoker Psychosocial: reports: Depression, Anxiety, Cannabis (daily edibles), Other (daily xanax use) History of Cancer?: No - Surgical History General: reports: Bowel surgery, Colonoscopy, Other Eyes Ears Nose Throat (EENT): reports: Rhinoplasty Gynecologic: reports: Breast reduction Exam General: Alert, Oriented x3, Cooperative, No acute distress Dental: WNL Mouth Openin Fingerbreadth Neck Mobility: Normal Mallampati classification: II Thyromental Distance: 4-6 cm Mental/Cognitive Status: Alert/Oriented X3, Normal for patient Plan Anesthesia Type: General, Total IV Consent for Procedure(s) Verified and Reviewed: Yes Code Status: Attempt Resuscitation ASA classification: 2-Mild systemic disease Is this case an emergency?: No
[2021-11-17] MEDS ORDERED: PROPOFOL 500 MG/50 ML 500 MG/50 ML VIAL ONE (10:15)
[2021-11-17] MEDS ORDERED: LACTATED RINGERS 300 ML IV ONE (10:45)
[2021-11-17 11:03] VITALS: BP 101/67
--- NOTE | 2021-11-17 14:45 | ANESTHESIA POST OP EVALUATION ---
Anesthesia Post Eval - Post Anesthesia Eval Vitals: Last Vital Signs Temp 36.2 C L 11/17/21 11:00 Pulse 106 H 11/17/21 11:00 Resp 18 11/17/21 11:00 BP 101/67 11/17/21 11:00 Pulse Ox 97 11/17/21 11:00 CV Function Including HR & BP: Stable Pain Control: Satisfactory Nausea & Vomiting: Negative Mental Status: Baseline Respiratory Status: Airway Patent Hydration Status: Satisfactory Anesthesia Complications: None
== END 2021-11-17 07:35 | disposition home or self-care (01) ==
LOC: SDS 07:34
PROVIDERS: ATTEND Surgery
PROC: 0DB58ZX Excision of Esophagus, Via Natural or Artificial Opening Endoscopic, Diagnostic (ICD-10-PCS; 2021-11-17)
PROC: 0DB48ZX Excision of Esophagogastric Junction, Via Natural or Artificial Opening Endoscopic, Diagnostic (ICD-10-PCS; 2021-11-17)
PROC: 0DBH8ZZ Excision of Cecum, Via Natural or Artificial Opening Endoscopic (ICD-10-PCS; principal; 2021-11-17 08:30)
PROC: 0DB98ZX Excision of Duodenum, Via Natural or Artificial Opening Endoscopic, Diagnostic (ICD-10-PCS; 2021-11-17 08:30)
DX: Z12.11 Encounter for screening for malignant neoplasm of colon (principal); D12.0 Benign neoplasm of cecum; K57.30 Diverticulosis of large intestine without perforation or abscess without bleeding; K64.4 Residual hemorrhoidal skin tags; K64.8 Other hemorrhoids; K22.4 Dyskinesia of esophagus; K21.9 Gastro-esophageal reflux disease without esophagitis; K29.50 Unspecified chronic gastritis without bleeding; K44.9 Diaphragmatic hernia without obstruction or gangrene; F41.8 Other specified anxiety disorders; Z86.16 Personal history of COVID-19
CPT/HCPCS: 43239; 45380; J7120

== ENCOUNTER 2021-12-09 12:24 | Outpatient (CLI) | payer MEDICARE, OTHER ==
--- NOTE | 2021-12-09 15:22 | XRAY Report ---
PROCEDURE: Elbow 3 View LT INDICATIONS: Left arm pain TECHNIQUE: 2 views of the elbow were acquired. COMPARISON: None. FINDINGS: Bones: No fractures or dislocations. No suspicious bony lesions. Soft tissues: No elbow joint effusion. No suspicious soft tissue calcifications. IMPRESSION: No acute finding. Reviewed by: Richard Cerna MD on 12/09/2021 3:20 PM PST Approved by: Richard Cerna MD on 12/09/2021 3:20 PM [facility] Station ID: [id number]
--- NOTE | 2021-12-09 17:30 | XRAY Report ---
PROCEDURE: Shoulder 3 View LT INDICATIONS: LEFT ARM PAIN TECHNIQUE: 4 views of the shoulder were acquired. COMPARISON: None. FINDINGS: Bones: No fractures or dislocations. No suspicious bony lesions. Visualized ribs appear intact. T here are mild degenerative changes of the acromioclavicular joint. Minimal glenohumeral degenerative change. Soft tissues: No suspicious soft tissue calcifications. IMPRESSION: Mild acromioclavicular and minimal glenohumeral degenerative change. Left shoulder witho ut acute fracture or dislocation. Reviewed by: Joao Bonilla MD on 12/09/2021 5:29 PM PST Approved by: Joao Bonilla MD on 12/09/2021 5:29 PM PST Station ID: [id number]
== END 2021-12-09 12:25 | disposition home or self-care (01) ==
LOC: DI.WOS 12:24
PROVIDERS: ATTEND Physician Assistant
DX: M19.012 Primary osteoarthritis, left shoulder (principal)

== ENCOUNTER 2022-02-10 08:00 | Outpatient (CLI) | payer MEDICARE, OTHER | END 2022-02-10 08:01 | disposition home or self-care (01) | LOC: LAB.N 08:00 | PROVIDERS: ATTEND Nurse Practitioner | DX: J06.9 Acute upper respiratory infection, unspecified (principal); Z20.822 Contact with and (suspected) exposure to COVID-19 ==

== ENCOUNTER 2022-10-26 13:54 | Outpatient (CLI) | payer MEDICARE, OTHER ==
--- NOTE | 2022-10-26 20:21 | MRI Report ---
PROCEDURE: ANKLE WO - RT INDICATIONS: RIGHT ACHILLES TENDONITIS TECHNIQUE: Noncontrast Magnetic Resonance Imaging (MRI) of the ankle/hindfoot was performed utilizing the follow ing sequences: sagittal T1 spin echo, sagittal STIR, axial PD fast spin echo, axial T2 fast spin echo with fat saturation, coronal T2 spin echo with fat saturation, and coronal PD fast spin echo with fa t saturation. COMPARISON: Left ankle radiographs 09/19/2018 FINDINGS: Image quality: Excellent. Bones and joints: No acute trabecular bone injury or fracture. No hindfoot coalition. The ankle mortise is maintained. No osteochondral defect is seen at the talar dome. Medial structures: The deltoid ligament and the spring ligament are intact. The posterior tibialis, flexor digitorum nikkie stiven, and flexor hallucis longus tendons are intact. The posterior tibial neurovascular bundle appears normal within the tarsal tunnel, without extrinsic mass effect. Lateral structures: The anterior and posterior distal tibiofibular ligaments are intact. Mild thickening of the anterior tibiofibular ligament is most secondary to a remote prior sprain. The calcaneofibular ligament and th e posterior talofibular ligament are intact. There is fluid signal intensity within the peroneus long us tendon at the level of the calcaneocuboid articulation that is consistent with partial intrasubsta nce tearing. The peroneus brevis tendon is intact. Lobular ganglion cysts are seen extending superior ly from the lateral sinus tarsi. Anterior structures: The tibialis anterior, extensor hallucis longus, and extensor digitorum longus tendons appear intact. Posterior and plantar structures: There is mild to moderate thickening of the midportion of the Achilles tendon, consistent with tendin osis. The medial and lateral bands of the plantar fascia are within normal limits. No disproportionat e atrophy of the abductor digiti minimi muscle. 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 2.Short segment partial intrasubstance tearing of the peroneus longus tendon at the level of the calc aneocuboid articulation with associated tenosynovitis. 3.Chronic low-grade sprain of the anterior talofibular ligament. Reviewed by: Sarath Hernandez MD on 10/26/2022 8:20 PM PST Approved by: Sarath Hernandez MD on 10/26/2022 8:20 PM PST Station ID: [id number]
== END 2022-10-26 13:55 | disposition home or self-care (01) ==
LOC: DI 13:54
PROVIDERS: ATTEND Podiatrist
DX: M67.873 Other specified disorders of tendon, right ankle and foot (principal); S86.311A Strain of muscle(s) and tendon(s) of peroneal muscle group at lower leg level, right leg, initial encounter; S93.491A Sprain of other ligament of right ankle, initial encounter

== ENCOUNTER 2022-11-17 12:40 | Outpatient (CLI) | payer MEDICARE, OTHER ==
--- NOTE | 2022-11-18 11:26 | Mammography Report ---
BILATERAL DIGITAL SCREENING MAMMOGRAM 3D/2D: 11/17/2022 CLINICAL: Family history of breast cancer. Routine screening. Comparison is made to exams dated: 09/29/2021 mammogram, 09/25/2020 mammogram, 09/06/2019 mammogram, 07/26/2018 mammogram, 07/22/2017 mammogram, and 07/13/2016 mammogram - [facility]. Both breasts are almost entirely fatty (category a/<25% glandular tissue). There are benign calcifications in the right breast. No significant masses, calcifications, or other findings are seen in either breast. There has been no significant interval change. IMPRESSION: BENIGN There is no mammographic evidence of malignancy. A 1 year screening mammogram is recommended. Based on the Tyrer Cuzick model (a risk assessment model) the patients lifetime risk is 10.3% and he r 10 year risk is 5.5%. According to the ACR, ACS, and NCCN guidelines, an annual breast MRI exam marcial ng with mammogram is recommended if the patients lifetime risk is 20% or greater. This exam was interpreted at Station ID: [id number]. NOTE: For mammograms, a report in lay terms will be sent to the patient. Approximately 15% of breast malignancies will not be visualized mammographically. In the management of a palpable breast mass, a negative mammogram must not discourage biopsy of a clinically suspicious lesion. Electronically Signed By: Joao Bonilla M.D. [email or web address]:11/17/2022 17:20:02 ACR BI-RADS Category 2: Benign Finding(s) 3342F PARENCHYMAL PATTERN: (F) - The breast(s) demonstrate(s) diffuse fatty replacement. BI-RADS CATEGORY: (2) - 2 RECOMMENDATION: (ANNUAL) - Recommend routine annual screening mammography. [id number] 1 year screening LATERALITY: (B)
== END 2022-11-17 12:41 | disposition home or self-care (01) ==
LOC: DI.N 12:40
DX: Z12.31 Encounter for screening mammogram for malignant neoplasm of breast (principal); Z80.3 Family history of malignant neoplasm of breast

== ENCOUNTER 2022-11-18 09:30 | Outpatient (CLI) | payer MEDICARE, OTHER ==
[2022-11-18 12:03] LABS: BASOPHILS % (AUTO) 0.7 %; EOSINOPHILS # (AUTO) 0.1 10^3/uL (0.0-0.7); EOSINOPHILS % (AUTO) 2.6 %; LYMPHOCYTES # (AUTO) 2.1 10^3/uL (1.5-3.5); LYMPHOCYTES % (AUTO) 38.1 %; MEAN CORPUSCULAR HEMOGLOBIN 31.8 pg (27.0-31.0); MEAN CORPUSCULAR HGB CONC 32.6 g/dL (32.0-36.0); MEAN CORPUSCULAR VOLUME 97.7 fL (81.0-99.0); MEAN PLATELET VOLUME 9.6 fL (7.9-10.8); MONOCYTES # (AUTO) 0.5 10^3/uL (0.0-1.0); MONOCYTES % (AUTO) 9.3 %; NEUTROPHILS # (AUTO) 2.7 10^3/uL (1.5-6.6); NEUTROPHILS % (AUTO) 48.9 %; PLT - PLATELET COUNT 327 10^3/uL (130-450); RED CELL DISTRIBUTION WIDTH 11.7 % (12.0-15.0); WHITE BLOOD COUNT 5.5 x10^3/uL (4.8-10.8)
[2022-11-18 12:27] LABS: ESTIMATED AVERAGE GLUCOSE 117 mg/dL (70-100); HEMOGLOBIN A1c% 5.7 % (4.27-6.07)
[2022-11-18 12:30] LABS: CHOL/HDL RATIO 3.6 (<4.4); CHOLESTEROL 202 mg/dL; HDL CHOLESTEROL 56 mg/dL; LDL CHOLESTEROL,CALCULATED 130 mg/dL; LDL/HDL RATIO 2.3 (<4.4); TRIGLYCERIDES 79 mg/dL; VLDL CHOLESTEROL 16 mg/dL
[2022-11-18 12:31] LABS: THYROID STIMULATING HORMONE 1.54 uIU/mL (0.34-5.60)
[2022-11-18 12:33] LABS: FREE T3 3.18 pg/mL (2.5-3.9); FREE T4 (FREE THYROXINE) 0.8 ng/dL (0.58-1.64)
== END 2022-11-18 09:31 | disposition home or self-care (01) ==
LOC: LAB.N 09:30
PROVIDERS: ATTEND Family Medicine
DX: E03.9 Hypothyroidism, unspecified (principal); Z78.0 Asymptomatic menopausal state; E55.9 Vitamin D deficiency, unspecified; E53.8 Deficiency of other specified B group vitamins; E78.2 Mixed hyperlipidemia; E28.2 Polycystic ovarian syndrome
CPT/HCPCS: 36415; 80061; 82306; 82607; 83036; 83721; 84439; 84443; 84481; 85025

== ENCOUNTER 2022-12-24 14:58 | Outpatient (CLI) | payer MEDICARE, OTHER ==
--- NOTE | 2022-12-24 17:20 | Ultrasound Report ---
PROCEDURE: Pelvic w/Transvaginal INDICATIONS: POSTMENOPAUSAL BLEEDING TECHNIQUE: Real-time scanning was performed of the pelvic organs, with image documentation. Additional endovagi nal scanning was necessary due to incomplete visualization of the adnexal and endometrial structures by transabdominal scanning. COMPARISON: None. FINDINGS: Uterus: Uterus is anteverted and normal in size at 9.1 x 4.9 x 5.9 cm. The myometrium is heterogene ous. The endometrium measures 7 mm in combined thickness. Endometrial calcifications present. Small subserosal fibroids present. Ovaries: Ovaries not visualized. Tubular, fluid-filled structure in the left adnexa is present, proba leena representing bowel. Other: No pathologic free abdominal or pelvic fluid. IMPRESSION: 1.Endometrial stripe measures 7 mm, abnormal in the setting of postmenopausal bleeding. Tissue sampli ng should be considered. 2.Tubular structure in the left adnexa probably represents bowel, less likely hydrosalpinx. Reviewed by: Keshawn Perez on 12/24/2022 5:19 PM PST Approved by: Keshawn Perez on 12/24/2022 5:19 PM PST Station ID: [id number]
== END 2022-12-24 14:59 | disposition home or self-care (01) ==
LOC: DI 14:58
PROVIDERS: ATTEND Obstetrics & Gynecology
DX: N95.0 Postmenopausal bleeding (principal); R93.89 Abnormal findings on diagnostic imaging of other specified body structures

== ENCOUNTER 2023-10-30 12:43 | Outpatient (CLI) | payer MEDICARE, OTHER ==
--- NOTE | 2023-10-31 13:11 | Ultrasound Report ---
PROCEDURE: Pelvic w/Transvaginal INDICATIONS: LLQ ABD PAIN TECHNIQUE: Real-time scanning was performed of the pelvic organs, with image documentation. Additional endovagi nal scanning was necessary due to incomplete visualization of the adnexal and endometrial structures by transabdominal scanning. COMPARISON: None. FINDINGS: Uterus: Uterus is anteverted and normal in size at 7.6 x 4.3 x 4.7 cm. The myometrium is homogeneou s. The endometrium measures 5 mm in combined thickness myometrial shadowing around the endometrium r aises the suspicion for adenomyosis.. Punctate calcifications are present within the endometrium. Th ere is a midline anterior subserosal fibroid which measures 1.4 x 1.5 x 0.9 cm. Ovaries: The right ovary measures 1.9 x 1.2 x 1.3 cm, with a calculated ovarian volume of 1.46 cc. The left ovary measures 1.8 x 0.9 x 1.1 cm, with a calculated ovarian volume of 0.9 cc. The ovaries have a normal sonographic appearance. Less than 12 follicles can be seen in each ovary. No adnexal masses are seen. No cystic lesions measuring greater than 3 cm. Other: No pathologic free abdominal or pelvic fluid. IMPRESSION: 1. Question adenomyosis. 2. Small uterine fibroid. 3. Endometrial thickness is the upper limits of normal in a postmenopausal female without bleeding. E ndometrial biopsy could be considered to exclude neoplasm or hypertrophy. Reviewed by: Genoveva Riddle MD on 10/31/2023 1:10 PM PST Approved by: Genoveva Riddle MD on 10/31/2023 1:10 PM PST Station ID: [id number]
== END 2023-10-30 12:44 | disposition home or self-care (01) ==
LOC: DI 12:43
PROVIDERS: ATTEND Obstetrics & Gynecology
DX: R10.32 Left lower quadrant pain (principal); D25.2 Subserosal leiomyoma of uterus; Z78.0 Asymptomatic menopausal state

== ENCOUNTER 2023-11-18 12:41 | Outpatient (CLI) | payer MEDICARE, OTHER ==
--- NOTE | 2023-11-18 15:55 | Mammography Report ---
BILATERAL DIGITAL SCREENING MAMMOGRAM 3D/2D: 11/18/2023 CLINICAL: Routine screening. Comparison is made to exams dated: 11/17/2022 mammogram, 09/29/2021 mammogram, 09/25/2020 mammogram, 11/06/2018 mammogram, 07/26/2018 mammogram, and 07/22/2017 mammogram - [facility]. There are scattered areas of fibroglandular density in both breasts (category b / 25%-50% glandular t issue). There are benign calcifications in the right breast. No significant masses, calcifications, or other findings are seen in either breast. There has been no significant interval change. IMPRESSION: BENIGN There is no mammographic evidence of malignancy. A 1 year screening mammogram is recommended. Based on the Tyrer Cuzick model (a risk assessment model) the patient's lifetime risk is 14.5% and he r 10 year risk is 8.2%. According to the ACR, ACS, and NCCN guidelines, an annual breast MRI exam marcial ng with mammogram is recommended if the patients lifetime risk is 20% or greater. This exam was interpreted at Station ID: [id number]. NOTE: For mammograms, a report in lay terms will be sent to the patient. Approximately 15% of breast malignancies will not be visualized mammographically. In the management of a palpable breast mass, a negative mammogram must not discourage biopsy of a clinically suspicious lesion. Electronically Signed By: Kade [email or web address]:11/18/2023 13:17:30 letter sent: No_Letter ACR BI-RADS Category 2: Benign Finding(s) 3342F PARENCHYMAL PATTERN: (A) - The breast(s) demonstrate(s) scattered fibroglandular densities. BI-RADS CATEGORY: (2) - 2 Mammogram [id number] 1 year screening LATERALITY: (B)
== END 2023-11-18 12:42 | disposition home or self-care (01) ==
LOC: DI.N 12:41
DX: Z12.31 Encounter for screening mammogram for malignant neoplasm of breast (principal); R92.323 Mammographic fibroglandular density, bilateral breasts; R92.1 Mammographic calcification found on diagnostic imaging of breast

== ENCOUNTER 2024-05-31 11:52 | Outpatient (CLI) | payer MEDICARE, OTHER ==
[2024-05-31 12:07] LABS: BASOPHILS % (AUTO) 0.5 %; EOSINOPHILS # (AUTO) 0.1 10^3/uL (0.0-0.7); HCT - HEMATOCRIT 41.5 % (37.0-47.0); LYMPHOCYTES # (AUTO) 2.3 10^3/uL (1.5-3.5); LYMPHOCYTES % (AUTO) 36.2 %; MEAN CORPUSCULAR HGB CONC 33.7 g/dL (32.0-36.0); MEAN CORPUSCULAR VOLUME 94.7 fL (81.0-99.0); MEAN PLATELET VOLUME 8.6 fL (7.9-10.8); MONOCYTES # (AUTO) 0.5 10^3/uL (0.0-1.0); MONOCYTES % (AUTO) 7.3 %; NEUTROPHILS # (AUTO) 3.5 10^3/uL (1.5-6.6); NEUTROPHILS % (AUTO) 54.8 %; PLT - PLATELET COUNT 315 10^3/uL (130-450); RED BLOOD COUNT 4.38 10^6/uL (4.20-5.40); RED CELL DISTRIBUTION WIDTH 11.7 % (12.0-15.0); WHITE BLOOD COUNT 6.3 x10^3/uL (4.8-10.8)
[2024-05-31 12:29] LABS: ALBUMIN 4.1 g/dL (3.2-5.5); ALBUMIN/GLOBULIN RATIO 1.4 (1.0-2.2); ALKALINE PHOSPHATASE 88 IU/L (42-121); ALT ALANINE AMINOTRANSFERASE 19 IU/L (10-60); AST ASPARTATE AMINOTRANSFERASE 20 IU/L (10-42); BILIRUBIN,TOTAL 1.5 mg/dL (0.2-1.0); BUN - BLOOD UREA NITROGEN 12 mg/dL (6-20); CALCIUM 9.9 mg/dL (8.5-10.3); CARBON DIOXIDE - CO2 30 mmol/L (21-32); CHLORIDE 100 mmol/L (101-111); CHOL/HDL RATIO 4.5 (<4.4); CHOLESTEROL 216 mg/dL; CREATININE 0.6 mg/dL (0.6-1.3); GFR - MDRD 99 (>89); GLUCOSE 99 mg/dL (74-104); HDL CHOLESTEROL 48 mg/dL; LDL CHOLESTEROL,CALCULATED 141 mg/dL; LDL/HDL RATIO 2.9 (<4.4); POTASSIUM 4.1 mmol/L (3.5-4.5); SODIUM 134 mmol/L (135-145); TOTAL PROTEIN 7.1 g/dL (6.4-8.9); TRIGLYCERIDES 133 mg/dL; VLDL CHOLESTEROL 27 mg/dL
[2024-05-31 12:46] LABS: THYROID STIMULATING HORMONE 1.53 uIU/mL (0.34-5.60)
[2024-05-31 14:47] LABS: ESTIMATED AVERAGE GLUCOSE 105 mg/dL (70-100); HEMOGLOBIN A1c% 5.3 % (4.27-6.07)
== END 2024-05-31 11:53 | disposition home or self-care (01) ==
LOC: LAB 11:52
PROVIDERS: ATTEND Family Medicine
DX: E55.9 Vitamin D deficiency, unspecified (principal); F41.0 Panic disorder [episodic paroxysmal anxiety]; E03.9 Hypothyroidism, unspecified; E53.8 Deficiency of other specified B group vitamins; E28.2 Polycystic ovarian syndrome
CPT/HCPCS: 36415; 80053; 80061; 82306; 82607; 83036; 83721; 83921; 84439; 84443; 84481; 85025

== ENCOUNTER 2024-06-16 14:01 | Outpatient (CLI) | payer MEDICARE, OTHER ==
--- NOTE | 2024-06-16 14:27 | XRAY Report ---
PROCEDURE: Abdomen 2 V INDICATIONS: LLQ ABDOMINAL PAIN TECHNIQUE: 3 views of the abdomen were acquired. COMPARISON: None. FINDINGS: Surgical changes and devices: None. Bowel: No pneumoperitoneum. The bowel gas pattern is normal. Large stool burden. Soft tissues: No masses; visualized solid organ contours appear normal in size. No suspicious abdom inal calcifications. Bones: No suspicious bony abnormalities. IMPRESSION: Large stool burden. Nonobstructive bowel gas pattern. Reviewed by: Juanjose Tamayo MD on 06/16/2024 2:26 PM PDT Approved by: Juanjose Tamayo MD on 06/16/2024 2:26 PM PDT Station ID: [id number]
== END 2024-06-16 14:02 | disposition home or self-care (01) ==
LOC: DI 14:01
PROVIDERS: ATTEND Family Medicine
DX: R10.32 Left lower quadrant pain (principal); E28.2 Polycystic ovarian syndrome; R53.83 Other fatigue; R53.81 Other malaise; Z79.890 Hormone replacement therapy; L65.9 Nonscarring hair loss, unspecified
CPT/HCPCS: 36415; 82670; 83001; 84144; 84402; 84403

== ENCOUNTER 2024-06-16 14:36 | Outpatient (CLI) | payer MEDICARE, OTHER ==
[2024-06-17 08:10] LABS: ESTRADIOL 13.7 pg/mL (0.0-54.7); PROGESTERONE 0.8 ng/mL (.)
== END 2024-06-16 14:37 | disposition home or self-care (01) ==
LOC: LAB 14:36
PROVIDERS: ATTEND Family Medicine
DX: E28.2 Polycystic ovarian syndrome (principal); R53.83 Other fatigue; R53.81 Other malaise; Z79.890 Hormone replacement therapy; L65.9 Nonscarring hair loss, unspecified
CPT/HCPCS: 36415; 82670; 83001; 84144; 84402; 84403